=== PATIENT | male | born 1970 | race Caucasian/White ===

== ENCOUNTER 2020-08-06 01:10 | Emergency (ER) | payer OTHER ==
[~2020-08-06] VITALS: Ht 180.3 cm; Wt 99.8 kg
[~2020-08-06 01:10] MED LIST: BACTRIM DS TAB1 EACH PO; IBUPROFEN 600600 M1 PO; NORCO 5-325 TA1 EACH PO; PERCOCET PO; TIZANIDINE HCL4 MG PO; VICODIN 5-3001 EACH
[2020-08-06 02:00] LABS: HEMATOCRIT 44.1 % (42.0-52.0); HEMOGLOBIN 15.5 gm/dL (14.0-18.0); MCH 31.2 pg (26.0-34.0); MCHC 35.1 g/dL (28.0-37.0); MCV 88.9 fL (80.0-100.0); PLATELET COUNT 150 thou/uL (150-400); RBC 4.96 mil/uL (4.50-6.00); RDW 13.4 % (10.5-14.5); WBC 9.3 thou/uL (4.0-11.0)
[2020-08-06 02:17] LABS: CALCIUM 8.6 mg/dL (8.5-10.1); CREATININE 1.2 mg/dL (0.7-1.3); POTASSIUM 3.3 mmol/L (3.5-5.1)
[2020-08-06 03:15] LABS: LARGE PLATELETS FEW; PLATELET ESTIMATE NORMAL
[2020-08-06] MEDS ORDERED: ZOFRAN ODT4 MG PO (04:10)
[2020-08-06 04:28] VITALS: BP 139/88
== END 2020-08-06 04:29 | disposition home or self-care (01) ==
LOC: ER 01:10
PROVIDERS: Emergency Medicine
DX: R06.02 Shortness of breath (principal); Z20.828 Contact with and (suspected) exposure to other viral communicable diseases